=== PATIENT | female | born 1950 | race Caucasian/White ===

== ENCOUNTER → 2019-01-12 | Outpatient (CLI) | payer MEDICARE, OTHER | LOC: M.RAD 15:22 | DX: M47.816 Spondylosis without myelopathy or radiculopathy, lumbar region (principal); M48.061 Spinal stenosis, lumbar region without neurogenic claudication; G89.29 Other chronic pain; M25.78 Osteophyte, vertebrae; M25.551 Pain in right hip; M25.552 Pain in left hip; I70.0 Atherosclerosis of aorta ==

== ENCOUNTER 2019-03-06 10:34 | Inpatient (IN) | payer MEDICARE, OTHER ==
[~2019-03-06] VITALS: Ht 167.6 cm; Wt 80.3 kg
--- NOTE | ~2019-03-06 | EEG ---
[address] [address] EEG STUDY REPORT Name: TWIN SCHNEIDER Room: [address] IN .R.#: [id number] Admission: 03/06/19 Attend Phys: Jesús Estrada MD Discharge: Date of : 52 Report #: [id number] THIS REPORT FOR: //name// CC: Jesús Estrada [facility] DATE OF SERVICE: 03/06/2019 This patient is being evaluated for an episode of syncope. EEG was done by placing the electrode by standard 10-20 system of electrode placement. Both referential and sequential montages were used for recording. The patient's background activity in this patient's EEG is about 11 Hz and 40 microvolt. The patient became drowsy that is associated with bilateral slowing and vertex sharp waves. Photic stimulation was unremarkable. Throughout the record, no active epileptiform activity was noticed. IMPRESSION: This patient's EEG is unremarkable. Thank you very much for this referral. By: 1859 [id number] Rousseau MD /nt
--- NOTE | ~2019-03-06 | CON ---
[address] [address] CONSULTATION Name: TWIN SCHNEIDER Room: [address] IN M.R.#: [id number] Admission: 03/06/19 Attend Phys: Jesús Estrada MD Discharge: Date of : 52 Report #: [id number] THIS REPORT FOR: //name// CC: Jesús Estrada [facility] HISTORY OF PRESENT ILLNESS: This is a 68-year-old female patient who was evaluated by me for any neurological etiology for an episode of passing out. The patient indicated that she is in chronic pain in the abdomen. This started somewhere in July. She has been diagnosed with gastroparesis. She had an episode in January where she passed out. The heard a big thud and she came back to herself reasonably fast. She had another episode, she was in shower, she passed out. was outside. He does not know what happened. The patient did not know anything what happened. She does have lacerations on the face. She came back to her baseline reasonably fast. She was able to walk to the car and did well there. She is still able to ambulate. REVIEW OF SYSTEMS: A 14-point review of system was carried out and it is pretty extensive. She says she is a diabetic, but does not take any medication for that. She said she has never known her blood sugar to go too low. She has chronic pain and multiple medications have been tried on her. She has stomach issues and she is on Reglan for that. She does not have anything to suggest Parkinson feature. The pain is nonstop of and it is not clear whether she gets any vasovagal spells with that pain or not. She feels back to her baseline except she still has a lot of abdominal pain. She is not complaining of any new eye, ENT, cardiac, respiratory, , constitutional, dermatological, hematological, psychiatric, throat or allergic symptoms associated with present symptomatology. She has lacerations on her face. She has pretty prominent abdominal symptoms. PAST MEDICAL HISTORY: Positive for similar episode in January. She did not have much evaluation at that time. FAMILY HISTORY: Negative for early age stroke. SOCIAL HISTORY: She denies the use of alcohol. PHYSICAL EXAMINATION: Indicate she is alert, responsive, able to follow simple commands. Her speech, concentration, fund of knowledge and memory is at her baseline. Cranial nerve examination 2-12 looks unremarkable. Strength, sensation, reflexes and tone looks symmetrical. There is no cerebellar sign. There is no meningeal sign. There is no papilledema. Pulses are palpable. She has no edema, cyanosis or jaundice. Cardiac examination is unremarkable. No respiratory difficulty was noticed. Her blood pressure is 137/80, respirations 16, pulse is 85, and temperature is 97.9. [place] [address] CONSULTATION Name: TWIN SCHNEIDER VALENTINA Room: [address] IN ..#: [id number] Admission: 03/06/19 Attend Phys: Jesús Estrada MD Discharge: Date of : 52 Report #: [id number] LABORATORY DATA: White count was 11.1 when she came in and 10.1 now. She did have multiple x-rays and CT was reviewed and that looks unremarkable. IMPRESSION: 1. An episode of syncope, which is unstructured. Because of chronic pain, it may be vasovagal spell, but this is the second episode she is having and we need to exclude any neurological or cardiac pathology. I discussed with the family that sometimes on workup we do not determine the cause, but there is a need to do all the workup, they agree with the workup. RECOMMENDATIONS: 1. MRI of the brain. 2. EEG. 3. We will see what this workup and cardiac workup shows. 4. I asked her not to drive until she is released to drive, depending upon the cause of symptoms. Thank you very much. By: 1038 [id number] Rousseau MD /raúl
[2019-03-06 10:41] VITALS: BP 193/119
[2019-03-06] MEDS ORDERED: TRAMADOL 50 MG50 MG PO (10:45)
[2019-03-06] MEDS ORDERED: REGLAN 10 MG TA10 MG PO (10:45)
[2019-03-06] MEDS ORDERED: AMITRIPTYLINE H25 M3 PO (10:46)
[2019-03-06 11:03] LABS: ABSOLUTE BASOPHILS 0.1 thou/uL (0.0-0.2); ABSOLUTE EOSINOPHILS 0.1 thou/uL (0.0-0.7); ABSOLUTE LYMPHOCYTES 1.9 thou/uL (0.8-5.3); ABSOLUTE MONOCYTES 0.8 thou/uL (0.0-1.2); ABSOLUTE NEUTROPHILS 8.1 thou/uL (1.6-8.1); BASOPHILS 1.1 %; HEMATOCRIT 47.2 % (37.0-47.0); HEMOGLOBIN 16.3 gm/dL (12.0-15.0); LYMPHOCYTES 17.5 %; MCH 32.2 pg (26.0-34.0); MCHC 34.5 g/dL (28.0-37.0); MCV 93.3 fL (80.0-100.0); MONOCYTES 7.4 %; MPV 9.2 fl. (7.2-11.1); NUCLEATED RBCS 0 /100WBC; PLATELET COUNT* 216 thou/uL (150-400); RBC 5.06 mil/uL (4.20-5.00); RDW-CV 12.6 % (10.5-14.5); WBC 11.1 thou/uL (4.0-11.0)
[2019-03-06 11:13] VITALS: BP 139/84
[2019-03-06 11:13] LABS: PROTIME 10.4 Seconds (9.20-11.50)
[2019-03-06 11:21] LABS: ANION GAP 10 mmol/L (7-16); BUN 11 mg/dL (7-18); CALCIUM 9.1 mg/dL (8.5-10.1); CHLORIDE 100 mmol/L (98-107); CO2 33 mmol/L (21-32); CREATININE 0.9 mg/dL (0.6-1.3); GLUCOSE 312 mg/dL (70-99); SODIUM 143 mmol/L (136-145)
[2019-03-06 11:26] LABS: ALBUMIN 3.5 g/dL (3.4-5.0); ALKALINE PHOSPHATASE 63 U/L (46-116); SGOT 17 U/L (15-37); SGPT 22 U/L (30-65); TOTAL BILIRUBIN 0.7 mg/dL (<0.1-1.0); TOTAL PROTEIN 7.4 g/dL (6.4-8.2); TROPONIN-I LEVEL <0.06 ng/mL (<0.06)
[2019-03-06 13:55] LABS: URINE BILIRUBIN NEGATIVE (Negative); URINE BLOOD NEGATIVE (Negative); URINE CLARITY CLEAR; URINE COLOR YELLOW; URINE GLUCOSE-RANDOM 1+ (Negative); URINE KETONES NEGATIVE (Negative); URINE LEUKOCYTES-REFLEX NEGATIVE (Negative); URINE NITRITE-REFLEX NEGATIVE (Negative); URINE PROTEIN NEGATIVE (Negative); URINE SPECIFIC GRAVITY <= 1.005 (1.005-1.030); URINE UROBILINOGEN 0.2 E.U./dl (0.2-1.0)
--- NOTE | 2019-03-06 15:54 | EKG ---
[place] [address] ELECTROCARDIOGRAM REPORT Name: TWIN SCHNEIDER Room: [place] [address] ADM IN [facility]#: [id number] Admission: 03/06/19 Attend Phys: Jesús Estrada MD Discharge: Date of : 52 Report #: [id number] THIS REPORT FOR: //name// [facility] ED Test Date: 2019-03-06 Test Time: 10:40:17 Pat Name: TWIN JENNIE Department: Room: Gender: F Educational Administrator: : 1950 Requested By: Jerad Peacock Order Number: [id number] MD: Carlo Francois Measurements Intervals [place] Rate: 103 P: 46 UT: 192 QRS: -39 QRSD: 93 T: 115 QT: 364 QTc: 477 Interpretive Statements Sinus tachycardia Probable left atrial enlargement Abnormal R-wave progression, late transition Left ventricular hypertrophy Nonspecific T abnormalities, lateral leads Borderline prolonged QT interval No previous ECG available for comparison Electronically Signed On 03-06-2019 15:54:09 CDT by Carlo Francois [email or web address] <ELECTRONICALLY SIGNED> By: Carlo Francois MD, FACC 03/06/19 1554 1040 1040 Carlo Francois MD, [facility] /EPI
[2019-03-06 16:20] VITALS: BP 154/92
[2019-03-06 16:50] VITALS: BP 170/97
[2019-03-06 20:00] VITALS: BP 114/81
[2019-03-07] VITALS: BP 116/66
[2019-03-07 04:00] VITALS: BP 137/80
[2019-03-07 05:08] LABS: ABSOLUTE BASOPHILS 0.1 thou/uL (0.0-0.2); ABSOLUTE EOSINOPHILS 0.3 thou/uL (0.0-0.7); ABSOLUTE LYMPHOCYTES 3.9 thou/uL (0.8-5.3); ABSOLUTE NEUTROPHILS 4.7 thou/uL (1.6-8.1); EOSINOPHILS 3.3 %; HEMOGLOBIN 15.2 gm/dL (12.0-15.0); LYMPHOCYTES 39.2 %; MCH 32.3 pg (26.0-34.0); MCHC 34.6 g/dL (28.0-37.0); MCV 93.5 fL (80.0-100.0); MONOCYTES 9.9 %; MPV 9.4 fl. (7.2-11.1); NUCLEATED RBCS 0 /100WBC; PLATELET COUNT* 210 thou/uL (150-400); POLYS 46.6 %; RBC 4.71 mil/uL (4.20-5.00); RDW-CV 12.7 % (10.5-14.5); WBC 10.1 thou/uL (4.0-11.0)
[2019-03-07 05:25] LABS: CALCIUM 8.9 mg/dL (8.5-10.1); CREATININE 0.8 mg/dL (0.6-1.3); POTASSIUM 3.3 mmol/L (3.5-5.1)
[2019-03-07 08:00] VITALS: BP 137/80
[2019-03-07 12:13] VITALS: BP 126/79
--- NOTE | 2019-03-07 13:37 | 2DMMODE ---
[place] [address] 2 D/M-MODE ECHOCARDIOGRAM Name: TWIN SCHNEIDER Room: [address] IN [facility]#: [id number] Admission: 03/06/19 Attend Phys: Jesús Estrada, Discharge: Date of : 52 Date of Service: 03/07/19 1337 Report #: [id number] THIS REPORT FOR: //name// APPROVED REPORT Study performed: 03/07/2019 11:37:45 EXAM: Comprehensive 2D, Doppler, and color-flow Echocardiogram Patient Location: In-Patient Room #: 229 Status: routine BSA: 1.90 HR: 87 bpm BP: 137/80 mmHg Rhythm: NSR Other Information Study Quality: Good Indications Syncope 2D Dimensions IVSd: 14.36 (7-11mm) LVOT Diam: 21.05 (18-24mm) LVDd: 40.06 mm PWd: 14.44 (7-11mm) Ascending Ao: 37.54 (22-36mm) LVDs: 28.58 (25-40mm) Aortic Root: 30.41 mm Volumes Left Atrial Volume (Systole) LA ESV Index: 17.20 mL/m2 Aortic Valve AoV Peak Naman.: 1.22 m/s AO Peak Gr.: 5.98 mmHg LVOT Max P.08 mmHg AO Mean Gr.: 3.45 mmHg LVOT Mean P.44 mmHg LVOT Max V: 0.88 m/s AO V2 VTI: 20.73 cm LVOT Mean V: 0.55 m/s MENA (VTI): 2.44 cm2 LVOT V1 VTI: 14.51 cm Mitral Valve E/A Ratio: 0.59 MV Decel. Time: 198.91 ms MV E Max Naman.: 0.64 m/[place] [address] 2 D/M-MODE ECHOCARDIOGRAM Name: TWIN SCHNEIDER Room: [address] IN .#: [id number] Admission: 03/06/19 Attend Phys: Jesús Estrada, Discharge: Date of : 52 Date of Service: 03/07/19 1337 Report #: [id number] MV PHT: 57.68 ms MVA (PHT): 3.81 cm2 TDI E/Lateral E': 10.67 E/Medial E': 10.67 Medial E' Naman.: 0.06 m/s Lateral E' Naman.: 0.06 m/s Pulmonary Valve PV Peak Naman.: 0.83 m/s PV Peak Gr.: 2.74 mmHg Left Ventricle The left ventricle is normal size. There is normal LV segmental wall motion. Mild concentric left ventricular hypertrophy. Left ventricular systolic function is normal. The left ventricular ejection fraction is within the normal range. LVEF is 60%. Grade I - abnormal relaxation pattern. Right Ventricle The right ventricle is normal size. The right ventricular systolic function is normal. Atria The left atrium size is normal. The right atrium size is normal. Aortic Valve The aortic valve is normal in structure. No aortic regurgitation is present. There is no aortic valvular stenosis. Mitral Valve The mitral valve is normal in structure. There is no mitral valve regurgitation noted. No evidence of mitral valve stenosis. Tricuspid Valve The tricuspid valve is normal in structure. Unable to assess PA pressure. Trace tricuspid regurgitation. Pulmonic Valve The pulmonary valve is normal in structure. There is no pulmonic valvular regurgitation. Great Vessels The aortic root is normal in size. IVC is normal in size and collapses >50% [place] [address] 2 D/M-MODE ECHOCARDIOGRAM Name: JENNIE,TWIN MONTGOMERY Room: [address] IN [facility]#: [id number] Admission: 03/06/19 Attend Phys: Jesús Estrada, Discharge: Date of : 52 Date of Service: 03/07/19 1337 Report #: [id number] Pericardium There is no pericardial effusion. <Conclusion> The left ventricle is normal size. Mild concentric left ventricular hypertrophy. Left ventricular systolic function is normal. The left ventricular ejection fraction is within the normal range. LVEF is 60%. Grade I - abnormal relaxation pattern. The right ventricle is normal size. The left atrium size is normal. The aortic valve is normal in structure. The mitral valve is normal in structure. The tricuspid valve is normal in structure. IVC is normal in size and collapses >50% with inspiration. There is no pericardial effusion. There is normal LV segmental wall motion. <ELECTRONICALLY SIGNED> By: Kannan Regalado MD, FACC 03/07/19 1337 1337 1337 Kannan Regalado MD, FACC /INF
[2019-03-07 16:27] VITALS: BP 154/89
[2019-03-07 20:15] VITALS: BP 160/86
[2019-03-08] VITALS (10 sets, daily range): BP systolic 119–174; BP diastolic 70–105
[2019-03-08] MEDS ORDERED: PROTONIX40 M1 PO (11:44)
== END 2019-03-08 13:40 | disposition home or self-care (01) | DRG 312 ==
LOC: M.ERS 10:34 → M.2W 13:16 → M.TBA-ER 13:16 → M.2W 16:14
PROVIDERS: Family Medicine; ADMIT Internal Medicine
PROC: 0HQ1XZZ Repair Face Skin, External Approach (ICD-10-PCS; principal; 2019-03-06)
PROC: 0CQ0XZZ Repair Upper Lip, External Approach (ICD-10-PCS; 2019-03-06)
DX: I95.1 Orthostatic hypotension (principal); S01.511A Laceration without foreign body of lip, initial encounter; I10 Essential (primary) hypertension; G89.29 Other chronic pain; E11.65 Type 2 diabetes mellitus with hyperglycemia; E87.6 Hypokalemia; E11.43 Type 2 diabetes mellitus with diabetic autonomic (poly)neuropathy; K31.84 Gastroparesis; W18.39XA Other fall on same level, initial encounter; Z23 Encounter for immunization; Z90.49 Acquired absence of other specified parts of digestive tract; Y93.E1 Activity, personal bathing and showering; Y92.89 Other specified places as the place of occurrence of the external cause; Y99.8 Other external cause status